=== PATIENT | male | born 1985 | race Caucasian/White ===

== ENCOUNTER 2018-01-13 11:25 | Emergency (ER) | payer OTHER | END 2018-01-13 12:16 | disposition left against medical advice (07) | LOC: TRA 11:25 | DX: T14.8XXA Other injury of unspecified body region, initial encounter (principal); V44.5XXA Car driver injured in collision with heavy transport vehicle or bus in traffic accident, initial encounter; Y92.410 Unspecified street and highway as the place of occurrence of the external cause; F17.200 Nicotine dependence, unspecified, uncomplicated | CPT/HCPCS: 80048; 81003; 82150; 83690; 85025; 86850; 86900; 86901; 99281; 99284; G0480 ==